=== PATIENT | female | born 1995 | race African-American/Black ===

== ENCOUNTER 2018-12-22 17:04 | Inpatient (IN) | payer OTHER ==
[~2018-12-22] VITALS: Ht 165.1 cm; Wt 84.3 kg
[2018-12-22 17:39] VITALS: BP 138/83
[2018-12-22] MEDS ORDERED: LACTATED RINGER'S 1000 ML IV STA (17:43)
[2018-12-22 18:14] LABS: HEMATOCRIT 35.6 % (36.0-47.0); HEMOGLOBIN 12.5 g/dl (12.0-15.5); MEAN CORPUSCULAR HEMOGLOBIN 30.1 pg (27.0-33.0); MEAN CORPUSCULAR HGB CONC 35.1 g/dl (32.0-36.5); MEAN CORPUSCULAR VOLUME 85.8 fl (80.0-96.0); PLATELET COUNT, AUTOMATED 220 10^3/uL (150-450); RED BLOOD COUNT 4.15 10^6/uL (4.00-5.40); WHITE BLOOD COUNT 7.3 10^3/uL (4.0-10.0)
[2018-12-22] MEDS ORDERED: OXYTOCIN DRIP 30 UNITS in APPROPRIATE DILUENT 1 EA IV SCH ×2 (18:15→22:08)
[2018-12-22] MEDS ORDERED: PRENTAB9 PO (18:22)
[2018-12-22] MEDS ORDERED: IRON325T7 PO (18:22)
[2018-12-22] MEDS ORDERED: VALT500T PO (18:22)
[2018-12-22 19:00] VITALS: BP 137/90
[2018-12-22] MEDS: LR 1,000 ML IV SCH (19:01)
--- NOTE | 2018-12-22 19:11 | HPEPDOC ---
Obstetrical History & Physical General Date of Admission 22 Dec 2018 History of Present Illness Zakia is a 23yo with SIUP at 39w2d presenting with increasingly uncomfortable contractions and loss of fluid, greenish in color, at approx 1630. She called late morning with regular ctx but they were not yet uncomfortable, so advised to stay home. She called again noting loss of green fluid, and was instructed to come in. No vaginal bleeding. Has felt movement. She notes no f/c/n/v/CP/SOB. Denies any active HSV lesions or prodromal sx. 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 History: Herpes simplex virus(HSV) Past Medical History Medical History Sickle cell trait (FOB neg) Surgical History: Denies/None Family History Significant Family History: No pertinent family hx Social History Marital Status: Family situation: Spouse/partner home Psychosocial History: No pertinent psych hx * Smoker: non-smoker Alcohol: Denies Drugs: denies Imunizations Tdap status: current Influenza Status: current Allergies Coded Allergies: No Known Allergies (Unverified , 12/22/18) Medications Scheduled (Iron High-Potency) 325 Mg Tab, 1 TAB PO BID Multivitamins/ ( 27-0.8 mg) 1 Tab Tab, 1 TAB PO DAILY Valacyclovir Hydrochloride (Valtrex) 500 Mg Tab, 1 TAB PO DAILY Physical Examination Physical Examination GENERAL: Alert and oriented times three. BREAST: . ABDOMEN: Gravid and non-tender to touch. FETUS: Is vertex (VTX) by sterile vaginal examination (SVE) EXTREMITIES: No edema of BLE Gross rupture of membranes, moderate meconium SSE (RN as paper control clerk): NEFG, no e/o active HSV lesions on cervix/vaginal allen/labia/perineum Laboratory Data CBC/BMP 28wk H/H 10.4/31.1 plt 259 Pertinent Laboratoy Data Blood Type: O+ RBC Antibody Screen: Negative HIV: Negative Hepatitis B: Negative Hepatitis C: Unknown Rapid Plasma Reagin: Nonreactive Rubella: Immune Varicella: Immune Chlamydia/Gonorrhea: Negative Group B Streptococcus: Negative Cystic Fibrosis: Negative Glucose Tolerance Test: 90 Diag/Inter Therapy 140 Anatomy Ultrasound Ultrasound Date: Aug 08, 2018 Placenta Location: Posterior Normal Anatomy: Yes Placenta Previa: No Steroid Therapy Steroid Therapy: No Vaginal Examination Dilation: 4 cm Effacement: 70% Station: -2 Cervical Consistency: Soft Cervical Position: Posterior Presentation: Cephalic presentation Assessment Heart Rate (FHR): 140 Variability: Moderate Accelerations: Positive Decelerations: None Tocometer Contractions: Yes Frequency: regular Duration: greater than 60 seconds Strength: palpated as moderate Assessment/Plan Assessment Zakia is a 23yo with SIUP at 39w2d admitted to L&D for SROM with meconium at approx 1630. SCE 3-4/75/-2. Vitals wnl, benign exam. Cephalic. GBS negative. Cat I FHRT, irregular ctx. No HSV genital lesions or prodromal sx. course significant for sickle cell trait (FOB negative) and hx of genital HSV taking Valtrex since 36wk. Plan Admit and orient. 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 Diet: clear liquids Group B Streptococcus (GBS) negative Labs and intravenous (IV) per unit protocol. Counseled on Pitocin augmentation Lactated Ringers (LR): Bolus 1000 mL, then at 125 mL/hr. Anticipate normal spontaneous delivery () Candidate for epidural as desired MD Nichole Jaime Katrina D MD Dec 22, 2018 18:10
[2018-12-22] MEDS ORDERED: FENTANYL 2MCG/ML ROPIVACAINE 0.2% IN 0.9% NACL 100ML IVBAG As Ordered ONE (20:10)
[2018-12-22] MEDS ORDERED: ONDANSETRON 4MG/2ML VIAL (J2405) IV PRN (21:15)
[2018-12-22] MEDS ORDERED: ePHEDrine SULFATE 25 MG/5 ML(5MG/ML) SYRINGE IV PRN (21:15)
[2018-12-22] MEDS ORDERED: NALOXONE INJ 0.4 MG/1 ML VIAL (J2310) IV PRN (21:15)
[2018-12-22] MEDS ORDERED: REFRIGERATOR IV KEYS XX PRN (21:15)
[2018-12-22] MEDS ORDERED: FENTANYL/ROPIVACAINE/NACL BAG 100 ML EPIDURAL SCH (21:15)
[2018-12-22] MEDS ORDERED: EPIDURAL COMMENT XX SCH (21:15)
[2018-12-22] MEDS ORDERED: LACTATED RINGER'S 1000 ML IV PRN (21:15)
[2018-12-22] MEDS ORDERED: EPIDURAL/PCA KEYS XX PRN (21:15)
[2018-12-22] MEDS ORDERED: diphenhydrAMINE INJ 50MG/ML VIAL (J1200) IV PRN (21:15)
[2018-12-22] MEDS ORDERED: MEASLES,MUMPS,RUBELLA VACCINE INJ (MMR-II) (90707) SC SCH (22:15)
[2018-12-22] MEDS ORDERED: DIBUCAINE 1% OINTMENT 30GM TOP PRN (22:15)
[2018-12-22] MEDS ORDERED: DOCUSATE SODIUM 100 MG CAP PO PRN (22:15)
[2018-12-22] MEDS ORDERED: RHOGAM 300 MCG (1500 IU) INJ (J2790) IM SCH (22:15)
--- NOTE | 2018-12-22 22:21 | DNPDOC ---
[facility] Delivery Note Delivery Note DATE OF DELIVERY: 22 Dec 2018 PREDELIVERY DIAGNOSIS: 39w2d gestation and labor/SROM (meconium). POST DELIVERY DIAGNOSIS: Delivered. PROCEDURE: Spontaneous vaginal delivery CELL TOWER CLIMBER: Dr. Racheal Varela MD ANESTHESIA: epidural ESTIMATED BLOOD LOSS: 200 mL. FINDINGS: 6 pound 11 ounce (3020g) female infant, Score 9/9, nuchal cord times 1 DELIVERY SUMMARY: Zakia is a 23yo [id number] s/p uncomplicated at 39w2d on 12/22/18 at 2153 after presenting with SROM (mod meconium)/labor. She quickly progressed with assistance of pitocin and received an epidural. At C/C/+1 she began pushing. Within a few pushes, 's head delivered OA, restituted JAMIR. One loose nuchal cord reduced. Left anterior shoulder delivered followed by posterior shoulder and corpus. Infant immediately vigorous with spontaneous cry, placed on maternal abdomen, apgars 9/9. Infant's mouth/nose suctioned with bulb suction. Cord clamped x2 and cut by FOB and baby was taken over to the warmer. With uterine massage and traction on the cord, placenta delivered spontaneously and intact with marginally inserted 3 vessel cord- there were some trailing membranes that were easily teased out intact. Bimanual uterine massage performed and pitocin IV given per protocol with fundus then firm at u-2cm and hemostasis noted. Inspection of perineum and vagina revealed no lacerations, just a small superficial periurethral abrasion that was not bleeding and did not need repair. EBL 200ml. Mom and infant were doing well when I left the room. MD Nichole Jaime Katrina D MD Dec 22, 2018 22:21
[2018-12-23 00:15] VITALS: BP 136/81
[2018-12-23] MEDS: LR 1,000 ML IV SCH ×3 (01:43→17:43)
[2018-12-23] MEDS: IBUPROFEN 800 MG TAB PO PRN ×2 (01:48→15:23)
[2018-12-23] MEDS: ACETAMINOPHEN 500 MG TAB PO PRN ×2 (05:45→19:24)
[2018-12-23 05:52] VITALS: BP 132/81
--- NOTE | 2018-12-23 06:44 | IPNPDOC ---
Progress Note Date of Service: Dec 23, 2018 Day#: 1 Progress Note PPD 1 SUBJECT: Zakia is a 23yo [id number] s/p uncomplicated after presenting in active labor at term, doing well day # 1. She has been ambulating, voiding spontaneously without issue and tolerating regular diet. Breast feeding without issue. Reports lochia is like a normal period. No f/c/n/v/CP/SOB. OBJECTIVE: VITAL SIGNS: Within normal limits, afebrile. Alert and oriented times three. Abdomen: Fundus firm at U-2. Soft, NTTP. ASSESSMENT: Zakia is a 23yo [id number] s/p uncomplicated after presenting in active labor at term, doing well day # 1. Vitals within normal limits, afebrile, hemodynamically stable with no evidence of infection. PLAN: 1. Routine care 2. Tylenol and Motrin for pain. 3. Encourage breast feeding and ambulation. 4. Regular diet 5. Likely discharge home tomorrow if meeting all milestones Dr. Racheal Varela MD VS, I&O, 24H, [facility] Vital Signs/I&O Vital Signs Date Time Temp Pulse Resp B/P (MAP) Pulse Ox O2 Delivery O2 Flow Rate FiO2 12/23/18 05:52 98.5 70 20 132/81 (98) 12/23/18 00:15 98 Room Air I&O- Last 24 Hours up to 6 AM 12/23/18 06:00 Intake Total 360 ml Output Total 350 ml Balance 10 ml Laboratory Data 24H LABS Laboratory Tests 2 12/22/18 17:57: Nucleated Red Blood Cells % (auto) 0.0, Syphilis Serology NONREACTIVE, Hepatitis B Surface Antigen (Rapid) NEGATIVEL 12/22/18 18:37: Serology Scanned Report Hepatitis B Testing CBC/BMP Laboratory Tests 12/22/18 17:57 Red Blood Count 4.15, Mean Corpuscular Volume 85.8, Mean Corpuscular Hemoglobin 30.1, Mean Corpuscular Hemoglobin Concent 35.1, Red Cell Distribution Width 12.9 Racheal Varela MD Dec 23, 2018 06:44
[2018-12-23] MEDS: PRENATAL VITAMINS CHEWABLE TABLET PO SCH (08:41)
[2018-12-23 18:00] VITALS: BP 122/60
[2018-12-24] MEDS: IBUPROFEN 800 MG TAB PO PRN (01:21)
[2018-12-24 05:40] VITALS: BP 140/79
[2018-12-24] MEDS: ACETAMINOPHEN 500 MG TAB PO PRN (05:43)
--- NOTE | 2018-12-24 06:55 | DS.PDOC ---
Discharge Summary General Date of Admission Dec 22, 2018 at 18:22 Date of Discharge Discharge Summary ADMITTING DIAGNOSES: SROM, labor DISCHARGE DIAGNOSES: Same, HOSPITAL COURSE: Admitted and delivery uncomplicated, . course uncomplicated. DISCHARGE MEDICATIONS: Motrin, Lanolin DISCHARGE INSTRUCTIONS: Nothing in the vagina for 6 weeks. F/U in OBGYN clinic in 6-8 weeks. Sessions Vital Signs/I&Os Vital Signs Date Time Temp Pulse Resp B/P (MAP) Pulse Ox O2 Delivery O2 Flow Rate FiO2 12/24/18 05:40 98.1 72 18 140/79 (99) 12/23/18 18:00 99 Room Air Discharge Medications Scheduled (Iron High-Potency) 325 Mg Tab, 1 TAB PO BID, (Reported) Multivitamins/ ( 27-0.8 mg) 1 Tab Tab, 1 TAB PO DAILY, (Reported) Valacyclovir Hydrochloride (Valtrex) 500 Mg Tab, 1 TAB PO DAILY, (Reported) Allergies Coded Allergies: No Known Allergies (Unverified , 12/22/18) SESSIONS,NANDA Alcaraz MD Dec 24, 2018 06:55
--- NOTE | 2018-12-24 06:56 | IPNPDOC ---
Text Note Date of Service The patient was seen on 12/24/18. NOTE PPD 2 SUBJECT: Zakia is a 23yo [id number] s/p uncomplicated after presenting in active labor at term, doing well day # 2. She has been ambulating, voiding spontaneously without issue and tolerating regular diet. Breast feeding without issue. Reports lochia is like a normal period. No f/c/n/v/CP/SOB. OBJECTIVE: VITAL SIGNS: Within normal limits, afebrile. Alert and oriented times three. Abdomen: Fundus firm at U-2. Soft, NTTP. ASSESSMENT: Zakia is a 23yo [id number] s/p uncomplicated after presenting in active labor at term, doing well day # 2. Vitals within normal limits, afebrile, hemodynamically stable with no evidence of infection. PLAN: 1. Routine care 2. Tylenol and Motrin for pain. 3. Encourage breast feeding and ambulation. 4. Regular diet 5. D/C home Sessions VS,González, I+O VSGonzález, I+O Vital Signs Date Time Temp Pulse Resp B/P (MAP) Pulse Ox O2 Delivery O2 Flow Rate FiO2 12/24/18 05:40 98.1 72 18 140/79 (99) 12/23/18 18:00 99 Room Air SESSIONS,NANDA Alcaraz MD Dec 24, 2018 06:56
[2018-12-24] MEDS ORDERED: MAPA500T2 PO (08:51)
[2018-12-24] MEDS ORDERED: IBUP-1114 PO (08:51)
[2018-12-24] MEDS ORDERED: COLA100C5 PO (08:51)
[2018-12-24] MEDS: PRENATAL VITAMINS CHEWABLE TABLET PO SCH (09:10)
== END 2018-12-24 10:25 | disposition home or self-care (01) | DRG 807 ==
LOC: M LDO 17:04 → M LDI 18:22 → M OBS 12-23 00:05
PROVIDERS: ADMIT Obstetrics & Gynecology; ATTEND Obstetrics & Gynecology
PROC: 10E0XZZ Delivery of Products of Conception, External Approach (ICD-10-PCS; principal; 2018-12-22)
DX: O99.013 Anemia complicating pregnancy, third trimester (principal); Z37.0 Single live birth; D57.3 Sickle-cell trait; Z3A.39 39 weeks gestation of pregnancy; O69.81X0 Labor and delivery complicated by cord around neck, without compression, not applicable or unspecified; O73.1 Retained portions of placenta and membranes, without hemorrhage; O77.0 Labor and delivery complicated by meconium in amniotic fluid

== ENCOUNTER → 2019-09-02 | Outpatient (REF) | payer OTHER ==
[~2019-09-02] MED LIST: COLA100C5 PO; FERR325T82 PO; IBUP-1114 PO; MAPA500T2 PO; PRENTAB9 PO; VALT500T PO
== END ==
LOC: M SFHCPLAZ 16:57
PROVIDERS: ATTEND Dermatology
DX: L91.0 Hypertrophic scar (principal)

== ENCOUNTER 2021-11-10 16:07 | Outpatient (CLI) | payer OTHER ==
[~2021-11-10] VITALS: Ht 163.8 cm; Wt 88.0 kg
[2021-11-10 16:26] VITALS: BP 128/74
[2021-11-10] MEDS ORDERED: HOME MED LIST COMPLETE! XX SCH (16:30)
== END 2021-11-10 17:43 | disposition home or self-care (01) ==
LOC: M LDO 16:07
PROVIDERS: ATTEND Obstetrics & Gynecology
DX: O47.1 False labor at or after 37 completed weeks of gestation (principal); Z3A.39 39 weeks gestation of pregnancy
CPT/HCPCS: 59025; 76815; G0378; G0463

== ENCOUNTER 2021-11-15 07:01 | Inpatient (IN) | payer OTHER ==
[~2021-11-15] VITALS: Ht 167.6 cm; Wt 88.1 kg
[2021-11-15] VITALS (8 sets, daily range): BP systolic 120–147; BP diastolic 57–97
[2021-11-15] MEDS ORDERED: LACTATED RINGER'S 1000 ML IV STA (07:48)
[2021-11-15] MEDS ORDERED: OXYTOCIN DRIP 30 UNITS in IV 1 EA IV PRN (07:50)
[2021-11-15] MEDS ORDERED: LR 1,000 ML IV SCH (07:50)
[2021-11-15] MEDS ORDERED: LIDOCAINE 1% MDV 20ML VIAL INFIL PRN (07:50)
[2021-11-15 08:30] LABS: HEMATOCRIT 34.7 % (36.0-47.0); MEAN CORPUSCULAR HEMOGLOBIN 29.7 pg (27.0-33.0); MEAN CORPUSCULAR HGB CONC 34.6 g/dl (32.0-36.5); MEAN CORPUSCULAR VOLUME 85.9 fl (80.0-96.0); PLATELET COUNT, AUTOMATED 173 10^3/uL (150-450); RED BLOOD COUNT 4.04 10^6/uL (4.00-5.40); WHITE BLOOD COUNT 6.8 10^3/uL (4.0-10.0)
[2021-11-15] MEDS: PRENATAL VITAMINS CHEWABLE TABLET PO SCH ×2 (09:00→15:00)
[2021-11-15] MEDS ORDERED: DIBUCAINE 1% OINTMENT 30GM TOP PRN (09:20)
[2021-11-15] MEDS ORDERED: METHYLERGONOVINE MALEATE 0.2 MG TAB PO PRN (09:20)
[2021-11-15] MEDS ORDERED: DOCUSATE SODIUM 100MG CAPSULE PO PRN (09:20)
[2021-11-15] MEDS ORDERED: MEASLES,MUMPS,RUBELLA VACCINE INJ (MMR-II) (90707) SC SCH (09:20)
[2021-11-15] MEDS ORDERED: RHOGAM 300 MCG (1500 IU) INJ (J2790) IM SCH (09:20)
[2021-11-15] MEDS ORDERED: OXYTOCIN 30 UNITS IN 0.9% NaCl 500ML IV BAG (J2590) As Ordered ONE (09:37)
[2021-11-15] MEDS ORDERED: OXYTOCIN DRIP 30 UNITS in IV 1 EA IV ONE (09:45)
[2021-11-15] MEDS: IBUPROFEN 800 MG TAB PO PRN (10:20)
[2021-11-15] MEDS ORDERED: OXYTOCIN DRIP 30 UNITS in IV 1 EA IV SCH (10:30)
[2021-11-15] MEDS: ACETAMINOPHEN TAB 650MG DOSE (2X325MG) PO PRN ×2 (12:43→17:55)
[2021-11-16] MEDS: IBUPROFEN 800 MG TAB PO PRN ×2 (00:44→13:09)
[2021-11-16] MEDS ORDERED: IBUP80TA PO (05:53)
[2021-11-16] MEDS ORDERED: ACET1TAB55 PO (05:53)
[2021-11-16 06:00] VITALS: BP 125/64
[2021-11-16] MEDS: ACETAMINOPHEN TAB 650MG DOSE (2X325MG) PO PRN (09:04)
== END 2021-11-16 18:09 | disposition home or self-care (01) | DRG 807 ==
LOC: M LDO 07:01 → M LDI 07:56 → M OBS 12:00
PROVIDERS: ADMIT Registered Nurse; ATTEND Registered Nurse
PROC: 10E0XZZ Delivery of Products of Conception, External Approach (ICD-10-PCS; principal; 2021-11-15)
PROC: 10907ZC Drainage of Amniotic Fluid, Therapeutic from Products of Conception, Via Natural or Artificial Opening (ICD-10-PCS; 2021-11-15)
DX: O62.3 Precipitate labor (principal); Z37.0 Single live birth; Z3A.38 38 weeks gestation of pregnancy